=== PATIENT | male | born 2000 | race American Indian/Alaskan Native ===

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

== ENCOUNTER 2022-01-11 23:36 | Emergency (ER) | payer MEDICAID ==
[~2022-01-11] VITALS: Ht 170.2 cm; Wt 113.6 kg
[2022-01-12] MEDS ORDERED: AMOX-117 PO (00:28)
[2022-01-12] MEDS ORDERED: amox tr/potassium clavulanate 875/125mg TAB PO ONE (00:30)
[2022-01-12 00:52] VITALS: BP 118/69
== END 2022-01-12 01:04 ==
LOC: ER 23:36
DX: S31.821A Laceration without foreign body of left buttock, initial encounter (principal); W54.0XXA Bitten by dog, initial encounter; Y93.89 Activity, other specified; Y92.89 Other specified places as the place of occurrence of the external cause; Y99.8 Other external cause status
CPT/HCPCS: 12002; 12004; 99284

== ENCOUNTER 2022-11-19 07:50 | Emergency (ER) | payer MEDICAID ==
[~2022-11-19] VITALS: Ht 172.7 cm; Wt 121.6 kg
[2022-11-19 08:16] VITALS: BP 132/87
== END 2022-11-19 11:00 | disposition home or self-care (01) ==
LOC: ER 07:51
DX: J06.9 Acute upper respiratory infection, unspecified (principal); Z20.822 Contact with and (suspected) exposure to COVID-19; Z79.899 Other long term (current) drug therapy
CPT/HCPCS: 87081; 87502; 87503; 87811; 87880; 99284

== ENCOUNTER 2023-11-29 15:39 | Emergency (ER) | payer MEDICAID ==
[~2023-11-29] VITALS: Ht 167.6 cm; Wt 126.1 kg
[2023-11-29 15:44] VITALS: BP 146/81; PULSE 84; TEMP 98; O2SAT 98
[2023-11-29] MEDS ORDERED: CYCL-1 PO (16:20)
[2023-11-29] MEDS ORDERED: IBUP-1984 PO (16:20)
[2023-11-29] MEDS: cyclobenzaprine 10mg tablet PO ONE (16:32)
[2023-11-29 16:33] VITALS: RESP 17
[2023-11-29] MEDS: ketorolac tromethamine 15mg/ml inj. IM ONE (16:33)
== END 2023-11-29 16:44 | disposition home or self-care (01) ==
LOC: ER 15:40
DX: M54.2 Cervicalgia (principal); Z79.899 Other long term (current) drug therapy; Z79.1 Long term (current) use of non-steroidal anti-inflammatories (NSAID); W19.XXXA Unspecified fall, initial encounter; Y93.89 Activity, other specified; Y92.89 Other specified places as the place of occurrence of the external cause; Y99.8 Other external cause status
CPT/HCPCS: 96372; 99284; J1885

== ENCOUNTER 2024-01-27 18:39 | Emergency (ER) | payer MEDICAID ==
[~2024-01-27] VITALS: Ht 175.3 cm; Wt 112.6 kg
[~2024-01-27 18:39] MED LIST changes: +CYCL-1 PO
[2024-01-27] MEDS ORDERED: MUPI15CR12 TOP (19:35)
[2024-01-27] MEDS ORDERED: CLIN300C54 PO (19:35)
[2024-01-27 20:55] VITALS: BP 151/88; PULSE 82; RESP 16; TEMP 98.3; O2SAT 99
== END 2024-01-27 20:57 | disposition home or self-care (01) ==
LOC: ER 18:39
DX: L01.00 Impetigo, unspecified (principal); Z79.899 Other long term (current) drug therapy
CPT/HCPCS: 99283

== ENCOUNTER 2024-03-21 22:43 | Emergency (ER) | payer MEDICAID ==
[~2024-03-21] VITALS: Ht 172.7 cm; Wt 113.6 kg
[~2024-03-21 22:43] MED LIST changes: +LIDO700A32 TOP; +MUPI15CR12 TOP
[2024-03-21 22:56] VITALS: BP 107/81; PULSE 77; RESP 17; TEMP 98.7; O2SAT 98
== END 2024-03-22 00:50 | disposition home or self-care (01) ==
LOC: ER 22:43
DX: M72.2 Plantar fascial fibromatosis (principal); Z79.899 Other long term (current) drug therapy
CPT/HCPCS: 99282